=== PATIENT | female | born 1995 ===

== ENCOUNTER 2024-01-20 08:55 | Outpatient (CLI) | payer OTHER | END 2024-01-20 09:01 | disposition home or self-care (01) | LOC: PRENATAL 08:55 | PROVIDERS: ATTEND Obstetrics & Gynecology Maternal & Fetal Medicine | DX: O26.849 Uterine size-date discrepancy, unspecified trimester (principal); O36.8199 Decreased fetal movements, unspecified trimester, other fetus; O99.210 Obesity complicating pregnancy, unspecified trimester; O24.419 Gestational diabetes mellitus in pregnancy, unspecified control; Z3A.34 34 weeks gestation of pregnancy ==